=== PATIENT | female | born 1955 | race Two or more races ===

== ENCOUNTER 2016-11-20 21:19 | Emergency (ER) | payer OTHER ==
--- NOTE | ~2016-11-20 | ER ---
PATIENT'S NAME: NANCY HUNTER [facility] AGE: 61 Y [address] ROOM: [place] [address] LOCATION: [facility] ADMIT DATE: 11/20/2016 ER/Outpatient Report DISCHARGE DATE: 11/20/2016 FAMILY PHYSICIAN: PHYSICIAN, NO ATTENDING PHYSICIAN: Silverio Medeiros Admission date and time are documented on the medical record. I saw the patient at 2140 hours. CHIEF COMPLAINT: Fall, midback pain, and right lower abdominal pain. HISTORY OF PRESENT ILLNESS: This patient is a 61-year-old female who was going downstairs. She was about on the 3rd or 4th step down and the step caved in. She went up to her waist, midback. She was able to crawl out and ended up driving herself to the emergency department for evaluation. The patient is awake and responsive. Denies any headache or loss of consciousness. No neck pain. Does have some midthoracic pain to just to the right of the spine and a large baseball sized abrasion. Also, has some right groin pain. No chest pain or shortness of breath. No upper extremity pain or lower extremity pain. Moves all 4 extremities. No nausea, vomiting, or diarrhea. No incontinence of stool or urine. No recent coughs, colds, flus, fever, chills, or sweats. HOME MEDICATIONS: None. ALLERGIES: PENICILLIN. SOCIAL HISTORY: Nonsmoker, nondrinker. SIGNIFICANT PAST MEDICAL HISTORY: Negative. OPERATIONS: Appendectomy. REVIEW OF SYSTEMS: All systems reviewed by me are negative with the exception of those discussed in the history of present illness. PHYSICAL EXAMINATION: VITAL SIGNS: Temperature 99, tympanic, pulse 65, respirations 16, blood PATIENT'S NAME: NANCY HUNTER [facility] AGE: 61 Y [address] ROOM: [place], [place] [address] LOCATION: [facility] ADMIT DATE: 11/20/2016 ER/Outpatient Report DISCHARGE DATE: 11/20/2016 FAMILY PHYSICIAN: PHYSICIAN, NO ATTENDING PHYSICIAN: Silverio Medeiros pressure 154/67, and O2 sat on room air is 97%. HEAD: Normocephalic. No abrasion, contusion, laceration, or swelling of the scalp or face. EYES: Extraocular muscles intact. PERRL. EARS: Clear TMs bilaterally. NOSE: Clear. THROAT: Clear. Mucous membranes moist. Teeth, jaw intact. NECK: Full range of motion. No tenderness. No thyromegaly or cervical adenopathy. SPINE: No step-off. No tenderness directly on the spine. The patient has a baseball sized abrasion contusion about the midback towards the right over the right midthoracic paraspinal muscles. PELVIS: Stable, nontender. EXTREMITIES: Moves all 4 extremities. No peripheral edema, cyanosis, or deformity. ABDOMEN: Soft, nondistended. Active bowel tones. No organomegaly or abnormal mass palpable. No abrasions, contusions, or ecchymosis of the abdomen or groin. NEUROVASCULAR: Intact. SKIN: Clear other than the midback abrasion. LABORATORY DATA: Plain x-ray studies of the chest, abdomen, and pelvis showed no acute lung infiltrate, no rib fractures, no obstruction, and no perforation. Does have increased stool pattern. Plain film of the thoracic spine showed no fracture or subluxation. Plain film of the lumbosacral spine showed no fracture or subluxation. Plain film of the pelvis showed no fracture. We will review all plain films with the radiologist. IMPRESSION: Fall through a step with contusion, bruise, abrasion, midright back, and some right groin pain. No fracture or abnormality found. She does not have any abrasions in the right groin, ecchymosis, or swelling. There is no chest injury, no cervical injury, and no head injury. No vascular or neurological changes. PLAN: The patient dismissed home. Observation. Activity as tolerated. Ice to any sore areas intermittently for 72 hours as needed. Keep abrasions clean and watch for infection. Beatty 7.5/325 1 every 4-6 hours as needed for pain, #16. Follow up with personal physician in 2-3 days or sooner if needed. Discussion ensued with the patient concerning my findings and recommendations, she understands. PATIENT'S NAME: NANCY HUNTER [facility] AGE: 61 Y [address] ROOM: [place] [address] LOCATION: [facility] ADMIT DATE: 11/20/2016 ER/Outpatient Report DISCHARGE DATE: 11/20/2016 FAMILY PHYSICIAN: JENNIFER RANKIN ATTENDING PHYSICIAN: Silverio Medeiros MD ALMAS CUENCA/modl /[id number] d: 11/20/16 2348 t: 11/21/16 1821, OUTPATIENT REPORT
== END 2016-11-20 23:07 | disposition disaster alternative care site (69) ==
LOC: GACC 21:19
DX: S20.221A Contusion of right back wall of thorax, initial encounter (principal); R10.31 Right lower quadrant pain; Z90.49 Acquired absence of other specified parts of digestive tract; Z88.0 Allergy status to penicillin; W10.9XXA Fall (on) (from) unspecified stairs and steps, initial encounter

== ENCOUNTER 2016-12-06 15:01 | Emergency (ER) | payer SELFPAY ==
--- NOTE | ~2016-12-06 | ER ---
PATIENT'S NAME: NANCY HUNTER [facility] AGE: 61 Y [address] ROOM: [place] [address] LOCATION: [facility] ADMIT DATE: 12/06/2016 ER/Outpatient Report DISCHARGE DATE: 12/06/2016 FAMILY PHYSICIAN: Physician, Unknown ATTENDING PHYSICIAN: Cortez Daily Time of Arrival: 1501 hours. Time of Evaluation: 1520 hours. CHIEF COMPLAINT: Back pain. HISTORY OF PRESENT ILLNESS: The patient is a 61-year-old female who presents to the emergency department today with chief complaint of back pain. She reports it radiates down the right leg. She had fallen about 2 weeks ago and had x-rays which were unremarkable. She was feeling better, however, she has stopped taking her pain medicine about 2-3 days ago and has gotten worse over the past 2-3 days. It is a pinching type sensation, sharp pain, stabby pain that goes down into her right leg. She also has pain in the right side of her neck that is sharp pain into her right shoulder. The pain is currently 10/10 in severity. It is worse with movement. PAST MEDICAL HISTORY: None. PAST SURGICAL HISTORY: Appendectomy. SOCIAL HISTORY: The patient denies any tobacco, alcohol, or illicit drug use. ALLERGIES: PENICILLIN. MEDICATIONS: Please see list. PRIMARY CARE DOCTOR: Juan Manuel Bains MD. REVIEW OF SYSTEMS: All systems are reviewed by myself and negative with the exception of those discussed in HPI and past medical history. [facility] 61 Y [address] ROOM: [place] [address] LOCATION: [facility] ADMIT DATE: 12/06/2016 ER/Outpatient Report DISCHARGE DATE: 12/06/2016 FAMILY PHYSICIAN: Physician, Unknown ATTENDING PHYSICIAN: Cortez Daily PHYSICAL EXAMINATION: VITAL SIGNS: Weight 69.2 kg, pulse 68, respiratory rate 20, temperature 97.7, oxygen saturation 97% on room air and blood pressure 169/74. GENERAL: The patient is a 61-year-old female, appears stated age, in moderate acute distress. HEENT: Normocephalic, atraumatic. Pupils are equal, round, and reactive to light and accommodation. Extraocular motions are intact. Nares are patent bilaterally. TMs are clear. NECK: Supple. There is no nuchal rigidity. CARDIOVASCULAR: Regular rate and rhythm. No murmurs, rubs, or gallops. LUNGS: Clear to auscultation bilaterally. No wheezes, rales, or rhonchi. ABDOMEN: Soft, nontender, and nondistended. No rebound, rigidity, or guarding. MUSCULOSKELETAL: The patient has tenderness to palpation to the lumbar spine as well as the right paraspinal musculature of the cervical spine. NEUROLOGICAL: 2/4 reflexes of bilateral Achilles and patella. SKIN: Warm and dry. LABORATORY DATA AND X-RAYS: Labs and x-rays are obtained. CT scan is obtained and I have the discussed results with the radiologist. It does show nondisplaced T12 and L1 transverse process fracture nondisplaced. There is also a sacral cyst which is within the sacral canal. These are typically benign per Radiology. C-spine shows a left upper lobe pulmonary nodule that is at least 8-9 mm and will require followup CT scan to rule out neoplasm. IMPRESSION: 1. Nondisplaced T12 and L1 transverse process fracture. 2. Left upper lobe pulmonary nodule requiring follow up chest CT. 3. Benign sacral cyst. 4. Initial visit. EMERGENCY DEPARTMENT COURSE: The patient was brought back to the examination room. Seen and evaluated by myself. IV was established. The patient was given 125 mg of Solu-Medrol and 0.[address] imaging obtained as described above. I have discussed the results of CT imaging with the patient. I have discussed with her and I would like her to follow up with Dr. García in 7-10 days for re- evaluation of the patient's the spinal injuries. I have also discussed with her the left upper lobe pulmonary nodule. I have discussed with her that this could potentially be a cancer and it does require followup CT imaging. I have written a prescription for Percocet dispensing #20 for home with sedation warning. I have also written a prescription for Flexeril for home. I have discussed return to care instructions including worsening symptoms or any other concerns to return to the emergency department as soon as possible. The PATIENT'S NAME: NANCY HUNTER [facility] AGE: 61 Y [address] ROOM: [place], [place] [address] LOCATION: [facility] ADMIT DATE: 12/06/2016 ER/Outpatient Report DISCHARGE DATE: 12/06/2016 FAMILY PHYSICIAN: , Jackelyn ATTENDING PHYSICIAN: Cortez Daily patient is agreeable without further questions at this time. DISPOSITION: The patient discharged home in good condition. DO LARRY IRIZARRY/vicenta /[id number] d: 12/07/16101 t: 12/15/16 1936, OUTPATIENT REPORT
== END 2016-12-06 17:15 | disposition disaster alternative care site (69) ==
LOC: GMED 15:01
DX: S22.089A Unspecified fracture of T11-T12 vertebra, initial encounter for closed fracture (principal); S32.019A Unspecified fracture of first lumbar vertebra, initial encounter for closed fracture; R91.8 Other nonspecific abnormal finding of lung field; L05.91 Pilonidal cyst without abscess; Z88.0 Allergy status to penicillin; Z90.89 Acquired absence of other organs; W19.XXXA Unspecified fall, initial encounter
CPT/HCPCS: J1170; J2930

== ENCOUNTER → 2016-12-16 | Outpatient (CLI) | payer SELFPAY | END | disposition disaster alternative care site (69) | LOC: GRAD 09:44 | DX: R29.898 Other symptoms and signs involving the musculoskeletal system (principal); S22.41XD Multiple fractures of ribs, right side, subsequent encounter for fracture with routine healing; M47.816 Spondylosis without myelopathy or radiculopathy, lumbar region; M85.68 Other cyst of bone, other site; R20.0 Anesthesia of skin; M50.21 Other cervical disc displacement, high cervical region; M50.222 Other cervical disc displacement at C5-C6 level ==

== ENCOUNTER → 2017-03-14 | Outpatient (CLI) | payer OTHER | END | disposition disaster alternative care site (69) | LOC: GRAD 03-09 13:00 | DX: R91.1 Solitary pulmonary nodule (principal) ==

== ENCOUNTER → 2017-03-21 | Outpatient (CLI) | payer OTHER | LOC: LKCL 18:05 | DX: Z01.419 Encounter for gynecological examination (general) (routine) without abnormal findings (principal) | CPT/HCPCS: G0145 ==

== ENCOUNTER 2017-04-13 09:50 | Emergency (ER) | payer OTHER ==
--- NOTE | ~2017-04-13 | ER ---
[facility]GE[facility] 62 Y [address] ROOM: [place] [address] LOCATION: ED ADMIT DATE: 04/13/2017 ER/Outpatient Report DISCHARGE DATE: 04/13/2017 FAMILY PHYSICIAN: Cindi Bains APRN ATTENDING PHYSICIAN: Cortez Daily Time of Arrival: 0950 hours. Time of Evaluation: 0956 hours. CHIEF COMPLAINT: Abdominal pain. HISTORY OF PRESENT ILLNESS: The patient is a 62-year-old female who presents to the emergency department today with a chief complaint of abdominal pain. She reports this has been going on since December after she had a fall. She reports it comes and goes. She denies any fevers or chills. No nausea or vomiting. No diarrhea or constipation. Denies any blood in her stool. No dark tarry stools. It is sharp pain. It is currently 5/10 in severity. She continues to have back pain as well. She did have some nondisplaced fractures at that time. PAST MEDICAL HISTORY: None. PAST SURGICAL HISTORY: Appendectomy. SOCIAL HISTORY: The patient denies any tobacco, alcohol, or illicit drug use. ALLERGIES: PENICILLIN. MEDICATIONS: Please see list. PRIMARY CARE DOCTOR: Juan Manuel Bains MD REVIEW OF SYSTEMS: All systems are reviewed by myself are negative with the exception of those discussed in the HPI and past medical history. LABORATORY DATA AND IMAGING STUDIES: Urine, unremarkable. Procalcitonin is less than 0.05. CBC is normal. CMP is [facility]GE: 62 Y [address] ROOM: [place] [address] LOCATION: [facility] ADMIT DATE: 04/13/2017 ER/Outpatient Report DISCHARGE DATE: 04/13/2017 FAMILY PHYSICIAN: Cindi Bains APRN ATTENDING PHYSICIAN: Cortez Daily normal. Lactate is normal. LFTs are normal. Lipase is normal. CT scan of the abdomen and pelvis was obtained. I have discussed the results with the radiologist. It shows no acute process. 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 There was no uterine or adnexal dysfunction. There was fatty liver noted. IMPRESSION: 1. Acute, nonsurgical, diffuse generalized abdominal pain. 2. Initial visit. EMERGENCY DEPARTMENT COURSE: The patient was brought back to the examination room. Seen and evaluated by myself. IV was established. Laboratory analysis and imaging were obtained as described above. The patient is given 50 mg of Toradol IV with significant improvement in the patient's symptoms. Her abdominal exam is repeated. She continues to have a nonsurgical abdominal exam at this time. I do feel she is safe for outpatient evaluation at this time. I have discussed, I would recommend she follows up with her primary care provider, Cindi Bains APRN in 2 to 3 days for re-evaluation. I have written a prescription for Zofran for home. I have discussed return to care instructions including worsening symptoms or any other concerns to return to the emergency department as soon as possible. The patient is agreeable without further questions at this time. DISPOSITION: The patient was discharged to home in good condition. DO LARRY IRIZARRY/vicenta /[id number] d: 04/13/17 1635 t: 04/14/17 1451, OUTPATIENT REPORT
[2017-04-13 10:12] LABS: BILIRUBIN URINE NEGATIVE (NEGATIVE); BLOOD URINE 10 /UL (NEGATIVE); COLOR URINE YELLOW (YELLOW); GLUCOSE URINE NEGATIVE (NEGATIVE); KETONE URINE NEGATIVE (NEGATIVE); LEUKOCYTES URINE NEGATIVE /UL (NEGATIVE); NITRITE URINE NEGATIVE (NEGATIVE); PROTEIN URINE NEGATIVE (NEGATIVE); SPEC GRAVITY URINE 1.015 (1.003-1.035); TURBIDITY URINE CLEAR (CLEAR); UROBILINOGEN URINE NORMAL (NORMAL)
[2017-04-13 10:23] LABS: EPITHELIAL URINE 0-2 #/HPF (NEGATIVE); RBC URINE NEGATIVE #/HPF (NEGATIVE); WBC URINE 0-2 #/HPF (NEGATIVE)
[2017-04-13 10:24] LABS: BACTERIA URINE RARE (NEGATIVE); MUCUS URINE 1+ (NEGATIVE)
[2017-04-13 10:25] LABS: BASOPHIL % 0.2 %; EOSINOPHIL # 0.3 K/uL (0.0-0.5); EOSINOPHIL % 4.6 %; HEMATOCRIT 39.9 % (33.0-46.0); HEMOGLOBIN 14.5 g/dL (10.0-15.0); IMMATURE GRANULOCYTE % 0.5 %; LYMPHOCYTE # 1.6 K/uL (0.8-4.0); LYMPHOCYTE % 28.3 %; MCHC 36.3 gm/dL (32.0-36.5); MCV 85.4 fl (83.0-98.0); MONOCYTE # 0.4 K/uL (0.0-1.0); MONOCYTE % 6.4 %; MPV 10.9 fl (9.4-12.4); NEUTROPHIL # (ANC) 3.4 K/uL (1.8-7.8); NRBC % 0 /100WBC (0-0.00); PLATELET COUNT 184 K/uL (150-450); RBC 4.67 M/uL (3.50-5.50); WBC 5.6 K/uL (4.0-11.0)
[2017-04-13 10:43] LABS: ALBUMIN 3.8 gm/dL (3.5-5.0); ALK PHOS 81 IU/L (33-138); ALT 37 IU/L (12-78); ANION GAP 10.9 (10.0-19.0); AST 21 IU/L (10-40); BLOOD UREA NITROGEN 9 mg/dL (6-24); CALCIUM 9.1 mg/dL (8.5-10.5); CHLORIDE 108 mMol/L (96-110); CO2 27 mMol/L (22-32); CREATININE 0.5 mg/dL (0.5-1.1); POTASSIUM 3.9 mMol/L (3.7-5.1); SODIUM 142 mMol/L (135-145); TOTAL BILIRUBIN 0.6 mg/dL (0.0-1.5); TOTAL PROTEIN 7.3 g/dL (6.0-8.4)
== END 2017-04-13 12:17 | disposition disaster alternative care site (69) ==
LOC: GMED 09:50
PROVIDERS: Emergency Medicine
DX: R10.84 Generalized abdominal pain (principal); Z90.49 Acquired absence of other specified parts of digestive tract; Z88.0 Allergy status to penicillin
CPT/HCPCS: J1885; J2001; J2405; Q9967